=== PATIENT | female | born 1945 | race Caucasian/White ===

== ENCOUNTER → 2017-07-11 | Outpatient (CLI) | payer MEDICARE, BC ==
[~2017-07-11] MED LIST: ACTO35TA PO; AMBI6.25 PO; CEVI1CAP PO; FLUO20CA12 PO; FLUR50TA PO; IBAN150T3 PO; MULT1TAB PO; PANT40TA3 PO; TURM1CAP6 PO; VITA2000 PO; ZOLP10TA3 PO; [UNRECOGNIZED DRUG - OTHER]
[2017-07-11 11:11] LABS: BASOPHIL % 0.6 % (0.0-2.0); EOSINOPHIL % 0.8 % (0.0-4.0); HEMATOCRIT 36.6 % (35.0-46.0); HEMOGLOBIN 12.7 GM/DL (11.6-15.3); LYMPH % 22.8 % (9.0-44.0); MEAN CELL VOLUME 90.2 FL (80.0-100.0); MEAN CORPUSCULAR HEMOGLOBIN 31.2 PG (27.0-34.0); MEAN CORPUSCULAR HGB CONC 34.6 % (32.0-36.0); MONO % 6.9 % (0.0-8.0); MONOCYTE # 0.3 TH/MM3 (0-0.9); NEUT % 68.9 % (16.0-70.0); PLATELET COUNT 289 TH/MM3 (150-450); RED BLOOD COUNT 4.05 MIL/MM3 (4.00-5.30); RED CELL DISTRIBUTION WIDTH 12.9 % (11.6-17.2); WHITE BLOOD COUNT 4.4 TH/MM3 (4.0-11.0)
[2017-07-11 11:38] LABS: BICARBONATE 26.2 MEQ/L (21.0-32.0); CALCIUM 8.6 MG/DL (8.5-10.1); CREATININE 0.91 MG/DL (0.50-1.00)
--- NOTE | 2017-07-11 12:05 | RADRPT ---
EXAM DATE/TIME: 07/11/2017 11:23 [facility] COMPARISON: No previous studies available for comparison. INDICATIONS : Evaluate for pneumonia, pneumothorax or communicable disease. Pre op right knee replacement. MEDICAL HISTORY : None. SURGICAL HISTORY : None. ENCOUNTER: Initial ACUITY: 1 day PAIN SCORE: 0/10 LOCATION: Bilateral chest FINDINGS: PA and lateral views of the chest demonstrate the lungs to be symmetrically aerated without evidence of mass, infiltrate or effusion. The cardiomediastinal contours are unremarkable. Small hiatus clarita ia. Osseous structures are intact. CONCLUSION: The lungs are clear. Shahid Wesley MD on July 11, 2017 at 12:03 Board Certified Radiologist. This report was verified electronically.
[2017-07-11 13:16] LABS: BILIRUBIN, URINE NEG (NEG); BLOOD, URINE NEG (NEG); GLUCOSE,URINE NEG (NEG); KETONE, URINE NEG (NEG); NITRITE,URINE NEG (NEG); SQUAMOUS EPITHELIAL CELL URINE <1 /hpf (0-5); URINE COLOR LIGHT-YELLOW (YELLW/STRAW); URINE LEUKOCYTE ESTERASE NEG (NEG)
--- NOTE | 2017-07-11 14:45 | EKG ---
Date Performed: 07/11/2017 Time Performed: 09:47:34 PTAGE: 72 years EKG: SINUS TACHYCARDIA POSSIBLE LEFT ATRIAL ENLARGEMENT ABNORMAL RHYTHM ECG PREVIOUS TRACING : 04/23/2007 09.41 Since the prior tracing, there has been no significant lindsey DOCTOR: Danni Jon Interpretating Date/Time 07/11/2017 14:39:38
--- NOTE | 2017-07-11 16:35 | EKG ---
Date Performed: 07/11/2017 Time Performed: 11:06:10 PTAGE: 72 years EKG: Sinus rhythm NORMAL ECG NO PREVIOUS TRACING DOCTOR: Parth Bowen Interpretating Date/Time 07/11/2017 16:32:23
== END ==
LOC: CPRE 09:59
PROVIDERS: ATTEND Orthopaedic Surgery
DX: Z01.810 Encounter for preprocedural cardiovascular examination (principal); Z01.811 Encounter for preprocedural respiratory examination; Z01.812 Encounter for preprocedural laboratory examination; M17.11 Unilateral primary osteoarthritis, right knee; R94.31 Abnormal electrocardiogram [ECG] [EKG]
CPT/HCPCS: 36415; 71046; 80048; 81001; 85025; 85610; 93005

== ENCOUNTER 2017-07-23 05:06 | Inpatient (IN) | payer MEDICARE, BC ==
--- NOTE | 2017-07-17 11:52 | MH ---
cc: Juan Bergeron MD DATE OF ADMISSION: 07/23/2017 ADMITTING DIAGNOSIS: Osteoarthritis of the right knee, varus deformity right knee, patellofemoral disorder right knee, pain right knee and gait disturbance. HISTORY: The patient is a 72-year-old white female who has had a rather lengthy history of bilateral knee pain extending back for more than 10 years. She was diagnosed as having osteoarthritis in the past, for which she conformed on conservative management with treatment including cortisone injections, Synvisc, antiinflammatory medication and therapy intervention. With the passage of time, she became progressively more symptomatic, initially being pronounced on the left side, for which she subsequently underwent left total knee arthroplasty completed in May of this past year. The patient experienced an uneventful recovery at that time and was able to resume a reasonable level of activity, although experiencing lingering symptoms about her right knee. She returned to the office in the more recent past, indicating that with the passive of time, she was becoming progressively more symptomatic with pain that was beginning to interfere with her daily routine. She was trying to conform to exercise activities as she had previously been instructed following her therapy intervention but was having considerable incapacitation with regards to all ambulatory activities. She continued to take ibuprofen on a routine basis but was aware of a clicking and grinding sensation of her right knee with an associated sensation of instability. She was utilizing both the cane and the walker as ambulatory aids in a part-time fashion. Her more current x-ray studies revealed severe degenerative changes with near [id number] apposition about the medial compartment and secondary involvement of the patellofemoral articulation. A varus deformity of at least 10 degrees magnitude was associated. Findings and treatment options were reviewed with the patient at that time. The pros and cons of continuing with conservative management versus operative intervention that would involve total knee arthroplasty were outlined. Emphasis was made regarding the fact that the decision to proceed with surgery would be left entirely to the patient's discretion. The patient felt that she had progressed to that point in time where she was ready to proceed with such treatment, especially in light of the favorable response that she had noted from previous intervention of her left knee. In compliance with her wishes, she was scheduled for admission at this time in order that right total knee arthroplasty be accomplished. PAST MEDICAL HISTORY: Hospitalization and surgeries, in addition to her left total knee arthroplasty, include abdominal hysterectomy, stapedectomy of her left ear, right carpal tunnel release and colonoscopy. Her medical illnesses include Sjogren's syndrome, acid reflux, anxiety, and insomnia. CURRENT MEDICATIONS: Include cevimeline 30 mg twice daily, pantoprazole 40 mg daily, fluoxetine 20 mg daily, zolpidem 10 mg daily, flurbiprofen 50 mg daily, ibandronate 150 mg on a monthly basis, turmeric 50 mg daily, Centrum Silver 1 daily and vitamin D3 2000 International Units daily. THE PATIENT DENIES ANY KNOWN DRUG ALLERGIES. REVIEW OF SYSTEMS: She wears glasses. Denies headache, seizure or syncope. No sinus congestion or epistaxis. Diminished auditory acuity. No tinnitus. No bleeding gums or dysphagia. No cough, shortness of breath, upper respiratory infection, pneumonia or tuberculosis. No angina or heart disease. Her appetite is good. Bowel movements are regular. No hepatitis, gallbladder disease, ulcers or hemorrhoids. There is a history of urinary tract infection. No kidney stones. No history of fractures. She has been treated for anxiety but otherwise no active psychiatric illness are described. Remaining review of systems is unremarkable and noncontributory. FAMILY HISTORY: The patient has been a for almost 2 years, her having at 82 years of age secondary to heart disease. She has 2 sons, one at 20 years of age secondary to drug use. Family history is positive for diabetes, dementia, heart disease, glaucoma, liver cancer and sepsis. SOCIAL HISTORY: The patient completed a BA college degree. She has been retired for at least 3 years, having worked for the [employer]. Denies active use of tobacco for greater than 30 years, had been an intermittent user for at least 10 years prior to that time. Ethanol consumption in the form of an occasional glass of wine. PHYSICAL EXAMINATION: HEIGHT: 4 feet 10 inches. WEIGHT: 130 pounds. An alert, oriented and responsive 72-year-old white female who sits quietly upon the examination table with no apparent distress. HEAD, EARS, EYES, NOSE AND THROAT: Pupils are equally round and reactive to light. Extraocular movements full. Sclerae clear. External nares clear. External auditory canals clear. Dental intact. Mucous membranes pink and moist. Pharynx clear. NECK: Supple, active range of motion with no significant pain, carotid pulse palpable bilaterally. Trachea midline. Thyroid without enlargement. LUNGS: Clear to auscultation and percussion. No CVA tenderness. No discomfort throughout the dorsolumbar spine. HEART: Regular rhythm, no murmur or gallop. ABDOMEN: Soft, nontender. Bowel sounds present. PELVIC: Per primary care physician. EXTREMITIES: Right knee, there is a mild fullness about the right knee consistent with a thickened synovium, slight medial joint line tenderness. Apprehension and compression sign negative. A 5-90 degree range of motion with discomfort at the extreme of flexion and crepitation elicited. No collateral ligamentous instability. Pavel test and/or sign negative. Pivot shift and Kenny sign positive for medial compartment pain. Straight leg raising unremarkable at 80 degrees, satisfactory mobility of the right hip with no associated pain. Antalgic gait. NEUROLOGIC: Cranial nerves 2-12 grossly intact. IMPRESSION: Osteoarthritis of the right knee, varus deformity right knee, patellofemoral disorder right knee, pain right knee, gait disturbance. PLAN: Right total knee arthroplasty. The nature of the plan, surgical procedure, the potential complications and risks associated, the expectations of surgery and the consent form were thoroughly reviewed with the patient prior to admission to the hospital. Dara has indicated her full understanding regarding all of the above and giving consent to proceed with treatment as outlined. Medical evaluation and clearance for surgery will be completed by her primary care physician, Dr. Kavon Wei. MD ULISSES De/HOANG , 04:21 PM , 05:04 PM
[~2017-07-23] VITALS: Ht 147.3 cm; Wt 58.6 kg
[~2017-07-23 05:06] MED LIST changes: -ACTO35TA PO; -AMBI6.25 PO; -[UNRECOGNIZED DRUG - OTHER]
[2017-07-23] MEDS ORDERED: METOPROLOL TARTRATE 25 MG TAB PO PRN (05:30)
[2017-07-23] MEDS ORDERED: POVIDONE IODINE 5% (ANTISEPSIS KIT) 4 APPLICATIONS EACH NARE PRN (05:30)
[2017-07-23] MEDS ORDERED: CHLORHEXIDINE GLUCONATE 2 % 1 PACK (2 CLOTHS) TOPICAL PRN (05:30)
[2017-07-23] MEDS ORDERED: TRANEXAMIC ACID 1 GM PRIOR TO PROCEDURE IV SCH ×2 (05:30)
[2017-07-23] MEDS ORDERED: LACTATED RINGER'S 1000 ML IV PRN (05:30)
[2017-07-23] MEDS ORDERED: POVIDONE IODINE 7.5% SCRUB 118 ML BOTTLE TOPICAL SCH (05:30)
[2017-07-23] MEDS ORDERED: ceFAZolin 2 GM PREMIX 50 ML IV SCH (05:30)
[2017-07-23] MEDS ORDERED: EXPAREL PERI-ARTICULAR INJECTION (TOTAL VOL. 60 ML) P-ARTICULR SCH ×2 (05:30)
[2017-07-23] MEDS ORDERED: SODIUM CHLORID 0.9% 500 ML IV PRN (05:30)
[2017-07-23] MEDS ORDERED: TRANEXAMIC ACID 1 GM POST-OP IV SCH ×2 (05:30)
[2017-07-23] MEDS ORDERED: FAT EMULSION 20% INJ 0 ML ONE (05:58)
[2017-07-23] MEDS ORDERED: BUPIVACAINE LIPOSOME PF 1.3% 20 ML VIAL ONE (06:14)
[2017-07-23] MEDS ORDERED: MIDAZOLAM HCL 5 MG/5 ML VIAL ONE (06:14)
[2017-07-23] MEDS ORDERED: ceFAZolin INJ 1,000 MG VIAL ONE ×2 (06:16→13:33)
[2017-07-23] MEDS ORDERED: PROPOFOL 500 MG/50 ML INJ 50 ML ONE (06:39)
[2017-07-23] MEDS ORDERED: ACETAMINOPHEN 1000 MG/100 ML 100 ML IV ONE (07:36)
[2017-07-23] MEDS ORDERED: KETAMINE HCL 10 MG/5 ML SYRINGE IV PUSH ONE (07:36)
[2017-07-23] MEDS ORDERED: DO NOT ADM ANY ANTICOAGULANT DRUGS PRN (09:30)
[2017-07-23] MEDS ORDERED: *morphine SULFATE 10 MG/ML PERIprocedure ONLY ONE ×2 (09:30→09:50)
--- NOTE | 2017-07-23 10:03 | MP ---
cc: Juan Bergeron MD DATE OF OPERATION: 07/23/2017 PREOPERATIVE DIAGNOSIS: Osteoarthritis of the right knee, varus deformity right knee, patellofemoral disorder right knee, pain right knee and gait disturbance. POSTOPERATIVE DIAGNOSIS: Osteoarthritis of the right knee, varus deformity right knee, patellofemoral disorder right knee, pain right knee and gait disturbance. PROCEDURE: Right total knee arthroplasty. SURGEON: MD Elyssa ANESTHESIA: General endotracheal. INDICATIONS: A 72-year-old white female with a lengthy history of bilateral knee pain extending back for more than 10 years at which time the patient was diagnosed as having osteoarthritis and had conformed to conservative management in the past which included cortisone injection, Synvisc, anti-inflammatory medication and therapy intervention. With the passage of time she became progressively more symptomatic with pain, initially being more pronounced on the left side for which she subsequently underwent a left total knee arthroplasty in May of 2016. The patient was noted to have tolerated her procedure well and her postoperative course was uneventful thereafter. She was able to resume a reasonable level of activity, although experiencing lingering symptoms involving her right knee. She returned to the office in the more recent past indicating that, with the passage of time, she was becoming progressively more symptomatic with pain that was beginning to interfere with her daily routine and all weightbearing activities. She had been trying to conform to continued exercise activities as previously instructed following her therapy intervention but was having considerable incapacitation with regards to all ambulatory activities. She was continuing to take ibuprofen on a routine basis, being aware of a clicking and grinding sensation of her right knee with an associated sensation of instability. She had been alternating between a cane and a walker as ambulatory aids. Her current x-ray studies revealed severe degenerative changes with near [id number] apposition about the medial compartment and secondary involvement of the patellofemoral articulation. A varus deformity of at least 10 degrees magnitude was noted. The findings and treatment options were reviewed with the patient at that time. The pros and cons of continuing with further conservative management versus operative intervention that would involve a total knee arthroplasty were outlined. Emphasis was made regarding the fact that the decision to proceed with surgery would be left entirely to the patient's discretion. The patient felt that she had progressed to that point in time and, noting the favorable response she had experienced from previous intervention of her left knee, she was ready to proceed with similar treatment involving her right knee at this time. In compliance with her wishes, she was scheduled for admission in order that the above be accomplished. FORMAT: Following the induction of satisfactory general anesthesia by endotracheal intubation as completed per the Department of Anesthesia, a tourniquet was established around the proximal portion of the right lower extremity. The extremity proper was isolated with a U-drape, thereafter being prepped with Betadine solution and draped into a sterile field in the routine manner. Prior to initiation of the actual procedure, the standard time-out protocol was completed. All parameters were appropriately addresses and confirmed by operating room personnel. The extremity was elevated for approximately 1 minute and the tourniquet thus inflated to 250 mmHg pressure. A sharp skin incision was initiated midline over the anterior aspect of the knee, being developed through underlying subcutaneous tissue with hemostasis maintained by electrocautery. By deepening dissection the anterior capsule was exposed, the medial capsulotomy completed and the patella subluxed in a lateral orientation. Examination of the joint space revealed severe degenerative changes throughout the medial compartment extending into the patellofemoral articulation. There was complete erosion of articular cartilage and underlying subchondral bone exposed involving both femoral condyle and tibial plateau. Lesser degenerative involvement of the lateral compartment was noted. The articular surface of the patella was resected with power saw. The three-holed guide was utilized for establishing post holes. The anterior cruciate ligament as well as medial and lateral meniscus structures were sharply excised. A centering hole was placed in the distal aspect of the femur allowing positioning of the intramedullary guide. The distal femoral cutting jig was attached and the distal femur was resected. AP measurement noted 60 mm sizing to be appropriate. The matching cutting block was positioned. Anterior, posterior and chamfer cuts were completed. The tibial plateau was thereafter subluxed in an anterior orientation allowing positioning of the extramedullary guide. The tibial plateau was resected and measured with 67 mm sizing determined to be appropriate. A trial reduction followed utilizing a 60-mm anatomic femoral component, a 67-mm tibial base with both 10 and 12 mm bearing inserts trialed. The 12-mm thickness was determined to be the more favorable fit. The knee was readily brought to full extension. There was no laxity due to varus/valgus stress at both 0 and 90 degrees flexed posture. Orientation was confirmed as appropriate with measurement of the pelvic guide through the mechanical axis of the knee. A trial reduction followed utilizing a 28-mm standard, three post patellar button. Once again good tracking was noted with no tendency towards subluxation. All trial components being removed, the remaining portion of the proximal tibia was prepared for insertion of the permanent component. The joint space was thoroughly lavaged with pulsating antibiotic solution, hemostasis maintained by electrocautery. An autogenous bone plug was inserted into the distal guide hole and thereafter a preparation of Palacos bone cement was utilized in inserting the knee components in a sequential fashion which included a 67-mm fixed cruciate tibial plate to which a 12-mm Vanguard tibial bearing insert was secured with locking cueva. The 60-mm Vanguard femoral component was firmly seated onto the distal femur, excess cement being removed. The knee was brought to full extension and thereafter the 28-mm, three-post standard patellar button was attached and maintained in place with patellar clamp while cement hardening was completed. Final range of motion assessment noted good tracking and stability throughout the knee. Irrigation was repeated with hemostasis maintained. Autovac drain tubes were inserted through superior stab wounds. The capsule was repaired with 0 Vicryl suture. The remaining portion of the wound was closed in layers in the routine manner, skin margins being reapproximated with a running subcuticular 3-0 Vicryl suture over which Steri-Strips were applied. Xeroform gauze and a bulky, dry, sterile dressing were placed. The tourniquet was deflated after 38 minutes of tourniquet time, the extremity being supported in the canvas knee splint. Anesthesia was discontinued and the patient thus transferred to a hospital bed and returned to the recovery room in satisfactory condition, having tolerated her operative procedure well. Estimated blood loss was approximately 50-75 cc. 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 MD ULISSES De/TEETEE , 09:17 AM , 10:01 AM
[2017-07-23] MEDS ORDERED: HYDROmorphone HCL PF 2 MG/ML VIAL ONE (11:20)
[2017-07-23] MEDS ORDERED: PHENYLEPH/NS 1000 MCG/10 ML SYR IV ONE (12:00)
[2017-07-23] MEDS ORDERED: DEXAMETHASONE SOD PHOS 4 MG/ML VIAL IV ONE (12:00)
[2017-07-23] MEDS ORDERED: LIDOCAINE HCL 1% PF 5 ML SYRINGE OTHER ONE (12:00)
[2017-07-23] MEDS ORDERED: ONDANSETRON HCL 4 MG/2 ML VIAL IV PUSH ONE (12:00)
[2017-07-23] MEDS ORDERED: ePHEDrine/NS 25 MG/5 ML SYRINGE IV ONE (12:00)
[2017-07-23] MEDS ORDERED: ROCURONIUM INJ 50 MG/5 ML SYRINGE IV PUSH ONE (12:00)
[2017-07-23] MEDS ORDERED: LACTATED RINGER'S 1000 ML INJ 1,000 ML IV ONE (12:00)
[2017-07-23] MEDS ORDERED: ONDANSETRON HCL 4 MG/2 ML VIAL IVP PRN (13:15)
[2017-07-23] MEDS ORDERED: DOCUSATE SODIUM 100 MG CAP PO PRN (13:15)
[2017-07-23] MEDS ORDERED: diphenhydrAMINE HCL 25 MG CAP PO PRN (13:15)
[2017-07-23] MEDS ORDERED: TRANEXAMIC ACID INJ 1,000 MG in SODIUM CHLORIDE 0.9% INJ 100 ML IV SCH (13:15)
[2017-07-23] MEDS ORDERED: ACETAMINOPHEN 325 MG TAB PO PRN (13:15)
[2017-07-23] MEDS ORDERED: Post-op Orders (for Pharmacy) XX ONE (13:15)
[2017-07-23] MEDS ORDERED: NALOXONE HCL 0.4 MG/ML AMP IV PUSH PRN (13:15)
[2017-07-23] MEDS ORDERED: SODIUM CHLORIDE 0.9% INJ 100 ML ONE (13:33)
--- NOTE | 2017-07-23 13:42 | RADRPT ---
EXAM DATE/TIME: 07/23/2017 13:18 [facility] COMPARISON: CHEST PA & LAT, July 11, 2017, 11:23. INDICATIONS : Post-op right total knee. MEDICAL HISTORY : None. SURGICAL HISTORY : None. ENCOUNTER: Initial ACUITY: 1 day PAIN SCORE: 2/10 LOCATION: Right knee FINDINGS: The patient is post left knee arthroplasty. The orthopedic hardware is in excellent position. There i s a surgical drain in place. CONCLUSION: 1. Orthopedic hardware in excellent position. John Tiwari MD on July 23, 2017 at 13:40 Board Certified Radiologist. This report was verified electronically.
[2017-07-23] MEDS ORDERED: MORPHINE SULFATE 30 MG/30 ML PCA IV SCH (14:00)
[2017-07-23] MEDS: PCA - TOTAL MG MORPHINE DELIVERED PER SHIFT SCH ×2 (14:00→22:00)
[2017-07-23] MEDS: DEXT 5%-NACL 0.45% 1000 ML INJ 1,000 ML IV SCH ×2 (14:00→22:34)
[2017-07-23 14:40] VITALS: BP 134/81; PULSE 98; RESP 18; TEMP 96.2; O2SAT 93
--- NOTE | 2017-07-23 15:04 | PD.CONS ---
HPI Service [facility] Hospitalists Consult Requested By Dr. Bergeron Reason for Consult Medical management Primary Care Physician Abe Wei MD Diagnoses: (1) Depression (2) GERD (gastroesophageal reflux disease) (3) Hyperlipidemia (4) Sjogren's syndrome History of Present Illness The patient is a 72-year-old female seen following right total knee arthroplasty. Hospitalist consultation was requested for medical management. Patient reports that her chronic medical conditions include Sjogren's syndrome and hyperlipidemia. She states that she is not on medication for her cholesterol, "but should be". She states that she did not tolerate the medication she was given previously. She states that her pain is well controlled at this time. She is on a MAINTENANCE SPECIALIST pump. Denies chest pain or dyspnea. Review of Systems Constitutional: DENIES: Fever, Chills, Night Sweats Eyes: DENIES: Blurred vision, Vision loss Ears, nose, mouth, throat: DENIES: Hearing loss Respiratory: DENIES: Cough, Wheezing, Sputum production, Shortness of breath Cardiovascular: DENIES: Chest pain, Palpitations, Dyspnea on Exertion, Lower Extremity Edema Gastrointestinal: DENIES: Abdominal pain, Constipation, Diarrhea, Nausea, Vomiting Genitourinary: DENIES: Urinary frequency, Urinary incontinence, Urgency, Hematuria, Dysuria, Nocturia Musculoskeletal: COMPLAINS OF: Joint pain, DENIES: Muscle aches Integumentary: DENIES: Pruritus, Rash Hematologic/lymphatic: DENIES: Bruising Neurologic: DENIES: Headache Past Family Social History Allergies: Coded Allergies: penicillin G (Unverified Allergy, Mild, UNKNOWN, 12/31/16) [id number] Reductase Inhibitor (Verified Allergy, Unknown, MYALGIA, MUSCLE ACHES AND PAINS, 07/11/17) Past Medical History Sjogren's syndrome Hyperlipidemia Depression GERD Osteoarthritis Past Surgical History Left total knee arthroplasty Right carpal tunnel release Stapedectomy, left ear Hysterectomy Reported Medications Cevimeline 30 mg twice daily Pantoprazole 40 mg daily Fluoxetine 20 mg daily Zolpidem 10 mg daily Flurbiprofen 50 mg daily Ibandronate 150 mg monthly Turmeric 50 mg daily Centrum Silver daily Vitamin D3 2000 international units daily Family History Sister has diabetes. Social History Quit smoking 35 years ago. Drinks 1 glass of wine daily. Denies illicit drug use. Physical Exam Vital Signs Vital Signs Date Time Temp Pulse Resp B/P (MAP) Pulse Ox O2 Delivery O2 Flow Rate FiO2 07/23/17 10:00 88 15 129/74 (92) 96 Nasal Cannula 3 07/23/17 09:45 84 17 120/72 (88) 95 Nasal Cannula 3 07/23/17 09:30 84 18 110/70 (83) 95 Nasal Cannula 3 07/23/17 09:13 97.0 89 13 92/50 (64) 97 Nasal Cannula 3 07/23/17 06:15 Room Air 2 07/23/17 05:45 98.2 95 22 175/94 (121) 98 Physical Exam GENERAL: Well-nourished, well-developed female in no acute distress. HEENT: Normocephalic, atraumatic. Pupils equal, round and reactive. Extraocular movements intact. No scleral icterus. No injection or drainage. Oropharynx is clear. Mucous membranes are moist. CARDIOVASCULAR: Regular rate and rhythm without murmurs, gallops, or rubs. RESPIRATORY: Clear to auscultation. No wheezes, rales, or rhonchi. Breathing is non-labored. GASTROINTESTINAL: Abdomen soft, non-tender, nondistended. Positive bowel sounds. EXTREMITIES: No lower extremity edema. No calf tenderness. SCDs. PSYCH: Alert and oriented x 3. Imaging Last Impressions Knee X-Ray 07/23/17 1305 Signed Impressions: Service Date/Time: Sunday, July 23, 2017 13:18 - CONCLUSION: 1. Orthopedic hardware in excellent position. John Tiwari MD Assessment and Plan Assessment and Plan 1. Osteoarthritis: Status post right total knee arthroplasty. Management per orthopedic surgery. Continue bowel regimen, pain control. 2. Hyperlipidemia: Patient states that she did not tolerate medication. Follow -up as outpatient with PCP. 3. Sjogren's syndrome: Continue cevimeline. 4. Depression/anxiety: Continue fluoxetine. 5. GERD: Continue pantoprazole. 6. DVT prophylaxis: Xarelto. Raphael Chambers MD Jul 23, 2017 15:04
[2017-07-23 20:00] VITALS: BP 155/80; PULSE 96; RESP 17; TEMP 99.7; O2SAT 93
[2017-07-24] VITALS: BP 119/71; PULSE 93; RESP 15; TEMP 97.5; O2SAT 92
[2017-07-24] MEDS: ZOLPIDEM TARTRATE 5 MG TAB PO PRN ×2 (03:12→20:47)
[2017-07-24] MEDS: ACETAMINOPHEN/HYDROcodone 325 MG/5 MG TAB PO PRN ×4 (03:13→18:25)
[2017-07-24 04:00] VITALS: BP 106/60; PULSE 83; RESP 15; TEMP 98.2; O2SAT 94
[2017-07-24] MEDS: PCA - TOTAL MG MORPHINE DELIVERED PER SHIFT SCH ×3 (05:35→22:00)
[2017-07-24] MEDS: DEXT 5%-NACL 0.45% 1000 ML INJ 1,000 ML IV SCH ×3 (05:43→22:00)
[2017-07-24] MEDS ORDERED: HYDR-3516 PO (06:15)
[2017-07-24] MEDS ORDERED: ASPI-183 PO (06:15)
--- NOTE | 2017-07-24 06:17 | HHI.FF ---
Face to Face Verification Diagnosis: (1) DJD (degenerative joint disease) of knee Physical Therapy Gait training Knee: Total knee, Protocol: Right, Full weight bearing Right LE Weight Bearing: WB as tolerated Right LE Range of Motion: Active ROM Nursing Dressing Changes: Daily dressing change I have seen patient Dara Portillo on 07/24/17. My clinical findings support the need for the requested home health care services because: Limited ability to care for self High risk of falls I certify that my clinical findings support that this patient is homebound because: Post-op weakness Unsteady gait/balance Unsafe to leave home unassisted Juan Bergeron MD Jul 24, 2017 06:17
[2017-07-24] MEDS ORDERED: WALKER WHEELS/F1 MIS (06:18)
[2017-07-24 06:56] LABS: HEMATOCRIT 28.4 % (35.0-46.0); HEMOGLOBIN 9.9 GM/DL (11.6-15.3)
[2017-07-24] MEDS: MULTIVITAMINS/MINERALS THERAPEUTIC TAB PO SCH (07:57)
[2017-07-24] MEDS: FLUoxetine HCL 20 MG CAP PO SCH (07:57)
[2017-07-24] MEDS: PANTOPRAZOLE SOD 40 MG DELAYED RELEASE TAB PO SCH (07:57)
[2017-07-24] MEDS: RIVAROXABAN 10 MG TAB PO SCH (07:57)
[2017-07-24 08:00] VITALS: BP 116/89; PULSE 85; RESP 18; TEMP 97.9; O2SAT 96
[2017-07-24 12:00] VITALS: BP 92/59; PULSE 78; RESP 18; TEMP 99.3; O2SAT 93
--- NOTE | 2017-07-24 15:01 | HHI.PR ---
Subjective Remarks The patient reports that her pain is well controlled. She just had some food get stuck while she was swallowing, but it cleared and she feels "much better". She is eating a sandwich now without difficulty. No chest pain or dyspnea. Objective Vitals Vital Signs Date Time Temp Pulse Resp B/P (MAP) Pulse Ox O2 Delivery O2 Flow Rate FiO2 07/24/17 12:00 99.3 78 18 92/59 (70) 93 07/24/17 08:00 97.9 85 18 116/89 (98) 96 07/24/17 05:35 18 07/24/17 04:00 98.2 83 15 106/60 (75) 94 07/24/17 00:00 97.5 93 15 119/71 (87) 92 07/23/17 22:00 18 07/23/17 20:00 99.7 96 17 155/80 (105) 93 07/23/17 15:27 14 I/O 07/23/17 07/23/17 07/23/17 07/24/17 07/24/17 07/24/17 07:00 15:00 23:00 07:00 15:00 23:00 Intake Total 1825 ml 500 ml 1823 ml Output Total 100 ml 50 ml 50 ml Balance 1725 ml 450 ml 1773 ml Intake Oral 400 ml IV Total 325 ml 100 ml 1823 ml Other 1500 ml Output Drainage Total 50 ml 50 ml 50 ml Estimated Blood Loss 50 ml # Voids 1 3 Result Diagram: 07/24/17 0615 Imaging Last Impressions Knee X-Ray 07/23/17 1305 Signed Impressions: Service Date/Time: Sunday, July 23, 2017 13:18 - CONCLUSION: 1. Orthopedic hardware in excellent position. John Tiwari MD Objective Remarks General: No acute distress. Heart: Regular rate and rhythm. No murmur. Lungs: Clear to auscultation bilaterally. No wheezes, rales, or rhonchi. Breathing is nonlabored. Abdomen: Soft, nontender, nondistended. Extremities: No lower extremity edema. Right knee bandaged. Psych: Alert and oriented. Procedures 07/23/17 right total knee arthroplasty Urinary Catheter: No Vascular Central Line Catheter: No A/P Problem List: (1) Depression ICD Code: F32.9 - Major depressive disorder, single episode, unspecified (2) GERD (gastroesophageal reflux disease) ICD Code: K21.9 - Gastro-esophageal reflux disease without esophagitis (3) Hyperlipidemia ICD Code: E78.5 - Hyperlipidemia, unspecified (4) Sjogren's syndrome ICD Code: M35.00 - Sicca syndrome, unspecified Assessment and Plan 1. Osteoarthritis: Status post right total knee arthroplasty. Management per orthopedic surgery. Continue bowel regimen, pain control. Continue physical therapy. 2. Hyperlipidemia: Patient states that she did not tolerate medication. Follow -up as outpatient with PCP. 3. Sjogren's syndrome: Continue cevimeline. 4. Depression/anxiety: Continue fluoxetine. 5. GERD: Continue pantoprazole. 6. DVT prophylaxis: Xarelto. 7. Postoperative anemia: H&H slightly decreased. Monitor labs. Discharge Planning Patient will likely need SNF/rehab. Case management to assist with discharge planning. Raphael Chambers MD Jul 24, 2017 15:01
[2017-07-24 16:00] VITALS: BP 130/70; PULSE 94; RESP 18; TEMP 97.6; O2SAT 94
[2017-07-24 20:00] VITALS: BP 146/70; PULSE 90; RESP 16; TEMP 101.3; O2SAT 95
[2017-07-25] VITALS: BP 114/58; PULSE 83; RESP 15; TEMP 98.5; O2SAT 94
[2017-07-25] MEDS: ACETAMINOPHEN/HYDROcodone 325 MG/5 MG TAB PO PRN ×6 (03:55→23:12)
[2017-07-25 04:00] VITALS: BP 103/60; PULSE 75; RESP 15; TEMP 99.5; O2SAT 94
[2017-07-25] MEDS: PCA - TOTAL MG MORPHINE DELIVERED PER SHIFT SCH ×2 (05:02→13:34)
[2017-07-25] MEDS: DEXT 5%-NACL 0.45% 1000 ML INJ 1,000 ML IV SCH ×3 (05:02→20:38)
[2017-07-25 05:09] LABS: AUTOMATED NEUTROPHIL # 3.4 TH/MM3 (1.8-7.7); BASOPHIL % 0.4 % (0.0-2.0); EOSINOPHIL % 0.5 % (0.0-4.0); HEMATOCRIT 27.6 % (35.0-46.0); HEMOGLOBIN 9.5 GM/DL (11.6-15.3); LYMPH % 23.5 % (9.0-44.0); LYMPHOCYTE # 1.3 TH/MM3 (1.0-4.8); MEAN CELL VOLUME 90.3 FL (80.0-100.0); MEAN CORPUSCULAR HGB CONC 34.3 % (32.0-36.0); MEAN PLATELET VOLUME 7.2 FL (7.0-11.0); MONO % 12.1 % (0.0-8.0); MONOCYTE # 0.7 TH/MM3 (0-0.9); NEUT % 63.5 % (16.0-70.0); PLATELET COUNT 213 TH/MM3 (150-450); RED BLOOD COUNT 3.05 MIL/MM3 (4.00-5.30); RED CELL DISTRIBUTION WIDTH 12.8 % (11.6-17.2); WHITE BLOOD COUNT 5.4 TH/MM3 (4.0-11.0)
[2017-07-25 05:26] LABS: BICARBONATE 25.9 MEQ/L (21.0-32.0); CALCIUM 8.3 MG/DL (8.5-10.1); CREATININE 0.85 MG/DL (0.50-1.00)
--- NOTE | 2017-07-25 07:04 | MD ---
cc: Juan Bergeron MD, James E MD DATE OF DISCHARGE: 07/26/2017 ADMITTING DIAGNOSIS: Osteoarthritis of the right knee. Varus deformity right knee. Patellofemoral disorder right knee. Pain right knee and gait disturbance. DISCHARGE DIAGNOSIS: Osteoarthritis of the right knee. Varus deformity right knee. Patellofemoral disorder right knee. Pain right knee and gait disturbance. HISTORY: A 72-year-old white female with a lengthy history of bilateral knee pain extending back for more than 10 years. The patient was diagnosed as having osteoarthritis in the past for which she conformed to conservative management which included intermittent cortisone injections of Synvisc, anti-inflammatory medication and therapy intervention. With the passage of time, she became progressively more symptomatic with pain initially being more pronounced on the left side for which she subsequently underwent a left total knee arthroplasty completed in 05/2016. The patient experienced an uneventful recovery at that time and was able to resume a reasonable level of activity, although experiencing lingering symptoms of her right knee. She returned to the office in the more recent past indicating that with the passage of time she was becoming progressively more symptomatic with pain that was beginning to interfere with her daily routine. She was trying to conform to the exercise activity she had previously been instructed following her therapy intervention, but was having considerable incapacitation with regards to all ambulatory activities. She was continuing to take ibuprofen on a routine basis being aware of a clicking and grinding sensation about her right knee associated with the sensation of instability. She was utilizing both a cane and a walker as ambulatory aids in a part-time manner. Her current x-ray studies revealed severe degenerative changes with near [id number] apposition about the medial compartment and secondary involvement of the patellofemoral articulation and a varus deformity of at least 10 degrees magnitude. Findings and treatment options were reviewed with the patient at that time. The pros and cons of continuing with conservative management versus operative intervention that would involve a total knee arthroplasty were outlined. Emphasis was made regarding the fact that the decision to proceed with surgery would be left entirely to the patient's discretion. The patient felt that she had progressed to that point in time where she was ready to proceed with such treatment especially in light of the favorable response that she had noted from previous intervention of her left knee. In compliance with her wishes, she was scheduled for admission in order that right total knee arthroplasty be accomplished. Physical examination at the time of admission revealed a mild fullness about the right knee consistent with a thickened synovium. There was slight medial joint line tenderness. Apprehension and compression sign negative. A 5-90 degree range of motion with discomfort at the extreme of flexion and crepitation elicited. No collateral ligamentous instability. Pavel test and drawer sign negative. Pivot shift and Kenny sign positive for medial compartment pain. Straight leg raising unremarkable at 80 degrees. Satisfactory mobility of the right hip with no associated pain. Antalgic gait. HOSPITAL COURSE: Prior to admission to the hospital, the patient had undergone medical evaluation and clearance for surgery as completed by her primary care physician, Dr. Kavon Wei. She was taken to the operating room on 07/23/2017 and on that date underwent a right total knee arthroplasty completed in an uncomplicated manner. The patient was noted to have tolerated her operative procedure well. Her postoperative course was stable thereafter. Hemoglobin/hematocrit assessment postoperatively was 9.5 and 27.6 respectively. The patient was progressively mobilized under the guidance of physical therapy being permitted weight-bearing to tolerance about her right lower extremity. Followup examination of her surgical wound noted to be intact healing favorably. No evidence of infection. Medical followup per the hospitalist service. DVT prophylaxis initiated. guest services coordinator consulted to assist with discharge planning. The patient agreed to temporary rehab placement given the fact that she resided alone at home and did not have full-time help available. Superannuation Clerk facilitated plans in this regard and pending medical clearance, she was scheduled for transfer on the third postoperative day at which time she was noted to be making favorable progress with regards to her rehab program. She was scheduled to be seen in office followup in approximately 4 weeks. Her condition at the time of discharge is stable. Prognosis is favorable. DISCHARGE MEDICATIONS: 1. Hydrocodone 5/325 #60. 2. Aspirin 325 mg 1 tab twice daily for 3 weeks #40. Juan Bergeron MD NBS/DL , 06:30 AM , 07:03 AM
[2017-07-25 08:00] VITALS: BP 94/55; PULSE 88; RESP 16; TEMP 98; O2SAT 99
[2017-07-25] MEDS: PANTOPRAZOLE SOD 40 MG DELAYED RELEASE TAB PO SCH (08:36)
[2017-07-25] MEDS: RIVAROXABAN 10 MG TAB PO SCH (08:36)
[2017-07-25] MEDS: FLUoxetine HCL 20 MG CAP PO SCH (08:36)
[2017-07-25] MEDS: MULTIVITAMINS/MINERALS THERAPEUTIC TAB PO SCH (08:37)
[2017-07-25 12:00] VITALS: BP 108/56; PULSE 76; RESP 16; TEMP 98.3; O2SAT 98
[2017-07-25] MEDS ORDERED: MISCELLANEOUS PHARMACY INFORMATION XX ONE (14:00)
--- NOTE | 2017-07-25 14:08 | HHI.PR ---
Subjective Remarks Follow up fever, anemia. Patient denies chest pain, dyspnea. She did have mild nausea earlier today. Objective Vitals Vital Signs Date Time Temp Pulse Resp B/P (MAP) Pulse Ox O2 Delivery O2 Flow Rate FiO2 07/25/17 08:00 98.0 88 16 94/55 (68) 99 07/25/17 04:00 99.5 75 15 103/60 (74) 94 07/25/17 00:00 98.5 83 15 114/58 (76) 94 07/24/17 22:00 18 07/24/17 20:00 101.3 90 16 146/70 (95) 95 07/24/17 16:00 97.6 94 18 130/70 (90) 94 I/O 07/24/17 07/24/17 07/24/17 07/25/17 07/25/17 07/25/17 07:00 15:00 23:00 07:00 15:00 23:00 Intake Total 1823 ml 600 ml Output Total 50 ml 50 ml 30 ml Balance 1773 ml 550 ml -30 ml Intake Oral 600 ml IV Total 1823 ml Output Drainage Total 50 ml 50 ml 30 ml # Voids 5 2 # Bowel Movements 0 Result Diagram: 07/25/17 0430 07/25/17 0430 Imaging Last Impressions Knee X-Ray 07/23/17 1305 Signed Impressions: Service Date/Time: Sunday, July 23, 2017 13:18 - CONCLUSION: 1. Orthopedic hardware in excellent position. John Tiwari MD Objective Remarks General: No acute distress. Heart: Regular rate and rhythm. No murmur. Lungs: Clear to auscultation bilaterally. No wheezes, rales, or rhonchi. Breathing is nonlabored. Abdomen: Soft, nontender, nondistended. Extremities: No lower extremity edema. Right knee bandaged. SCDs. Psych: Alert and oriented. Procedures 07/23/17 right total knee arthroplasty Urinary Catheter: No Vascular Central Line Catheter: No A/P Problem List: (1) Depression ICD Code: F32.9 - Major depressive disorder, single episode, unspecified (2) GERD (gastroesophageal reflux disease) ICD Code: K21.9 - Gastro-esophageal reflux disease without esophagitis (3) Hyperlipidemia ICD Code: E78.5 - Hyperlipidemia, unspecified (4) Sjogren's syndrome ICD Code: M35.00 - Sicca syndrome, unspecified Assessment and Plan 1. Osteoarthritis: Status post right total knee arthroplasty. Management per orthopedic surgery. Continue bowel regimen, pain control. Continue physical therapy. 2. Hyperlipidemia: Patient states that she did not tolerate medication. Follow -up as outpatient with PCP. 3. Sjogren's syndrome: Continue cevimeline. 4. Depression/anxiety: Continue fluoxetine. 5. GERD: Continue pantoprazole. 6. DVT prophylaxis: Xarelto. 7. Postoperative anemia: H&H slightly decreased postoperatively. Monitor labs. 8. Fever: Encourage incentive spirometry. No leukocytosis and patient has been afebrile since midnight. No respiratory or urinary complaints at this time. Discharge Planning Plan is for discharge to SNF/rehab, possibly tomorrow, per orthopedic surgery. Raphael Chambers MD Jul 25, 2017 14:08
[2017-07-25 16:00] VITALS: BP 95/51; PULSE 76; RESP 16; TEMP 99.7; O2SAT 94
[2017-07-25] MEDS ORDERED: EVOXAC PO SCH (18:00)
[2017-07-25 20:00] VITALS: BP 111/63; PULSE 88; RESP 18; TEMP 98.8; O2SAT 95
[2017-07-25] MEDS: ZOLPIDEM TARTRATE 5 MG TAB PO PRN (23:12)
[2017-07-26] VITALS: BP 114/67; PULSE 78; RESP 16; TEMP 99.1; O2SAT 94
[2017-07-26] MEDS: ZOLPIDEM TARTRATE 5 MG TAB PO PRN (00:15)
[2017-07-26] MEDS: DEXT 5%-NACL 0.45% 1000 ML INJ 1,000 ML IV SCH ×3 (06:00→20:31)
[2017-07-26] MEDS: FLUoxetine HCL 20 MG CAP PO SCH (07:17)
[2017-07-26] MEDS: RIVAROXABAN 10 MG TAB PO SCH (07:17)
[2017-07-26] MEDS: ACETAMINOPHEN/HYDROcodone 325 MG/5 MG TAB PO PRN ×4 (07:17→21:07)
[2017-07-26] MEDS: PANTOPRAZOLE SOD 40 MG DELAYED RELEASE TAB PO SCH (07:17)
[2017-07-26] MEDS: MULTIVITAMINS/MINERALS THERAPEUTIC TAB PO SCH (07:18)
[2017-07-26 08:00] VITALS: BP 133/65; PULSE 81; RESP 18; TEMP 100.3; O2SAT 91
[2017-07-26 12:00] VITALS: BP 99/51; PULSE 74; RESP 18; TEMP 98.9; O2SAT 95
--- NOTE | 2017-07-26 12:28 | HHI.PR ---
Subjective Remarks Follow up fever, anemia. Patient has not had a BM since surgery. Received Colace this morning. Denies cough, dyspnea, chest pain, nausea, vomiting, dysuria. Objective Vitals Vital Signs Date Time Temp Pulse Resp B/P (MAP) Pulse Ox O2 Delivery O2 Flow Rate FiO2 07/26/17 08:00 100.3 81 18 133/65 (87) 91 07/26/17 00:00 99.1 78 16 114/67 (83) 94 07/25/17 20:00 98.8 88 18 111/63 (79) 95 07/25/17 16:00 99.7 76 16 95/51 (66) 94 I/O 07/25/17 07/25/17 07/25/17 07/26/17 07/26/17 07/26/17 07:00 15:00 23:00 07:00 15:00 23:00 Intake Total 240 ml Output Total 30 ml Balance -30 ml 240 ml Intake Oral 240 ml Output Drainage Total 30 ml # Voids 2 1 # Bowel Movements 0 Result Diagram: 07/25/17 0430 07/25/17 0430 Imaging Last Impressions Knee X-Ray 07/23/17 1305 Signed Impressions: Service Date/Time: Sunday, July 23, 2017 13:18 - CONCLUSION: 1. Orthopedic hardware in excellent position. John Tiwari MD Objective Remarks General: No acute distress. Sitting up in a chair. Heart: Regular rate and rhythm. No murmur. Lungs: Clear to auscultation bilaterally. No wheezes, rales, or rhonchi. Breathing is nonlabored. Abdomen: Soft, nontender, nondistended. Extremities: No lower extremity edema. Right knee bandaged. SCDs. Psych: Alert and oriented. Procedures 07/23/17 right total knee arthroplasty Urinary Catheter: No Vascular Central Line Catheter: No A/P Problem List: (1) Depression ICD Code: F32.9 - Major depressive disorder, single episode, unspecified (2) GERD (gastroesophageal reflux disease) ICD Code: K21.9 - Gastro-esophageal reflux disease without esophagitis (3) Hyperlipidemia ICD Code: E78.5 - Hyperlipidemia, unspecified (4) Sjogren's syndrome ICD Code: M35.00 - Sicca syndrome, unspecified Assessment and Plan 1. Osteoarthritis: Status post right total knee arthroplasty. Management per orthopedic surgery. Continue bowel regimen, pain control. Continue physical therapy. 2. Hyperlipidemia: Patient states that she did not tolerate medication. Follow -up as outpatient with PCP. 3. Sjogren's syndrome: Continue cevimeline. 4. Depression/anxiety: Continue fluoxetine. 5. GERD: Continue pantoprazole. 6. DVT prophylaxis: Xarelto. 7. Postoperative anemia: H&H slightly decreased postoperatively. Stable. 8. Fever: Encourage incentive spirometry. No respiratory or urinary complaints at this time. Tmax 100.3 this morning. 9. Constipation: As needed medications added. Received Colace this morning. Discharge Planning Plan is for discharge to SNF/rehab today per orthopedic surgery. Raphael Chambers MD Jul 26, 2017 12:28
[2017-07-26] MEDS ORDERED: SENNOSIDES 8.6 MG TAB PO PRN (12:30)
[2017-07-26] MEDS ORDERED: BISACODYL 10 MG SUPP RECTAL PRN (12:30)
[2017-07-26] MEDS ORDERED: MAGNESIUM HYDROXIDE SUSP 30 ML CUP PO PRN (12:30)
[2017-07-26] MEDS ORDERED: LACTULOSE SYRUP 20 GM/30 ML CUP PO PRN (12:30)
[2017-07-26 16:00] VITALS: BP 128/60; PULSE 82; RESP 18; TEMP 100.3; O2SAT 95
[2017-07-26 19:20] VITALS: BP 115/58; PULSE 71; RESP 17; TEMP 98.9; O2SAT 94
[2017-07-26] MEDS: DOCUSATE SODIUM 50 MG/SENNA 8.6 MG TAB PO SCH (20:31)
[2017-07-27 00:25] VITALS: BP 134/65; PULSE 77; RESP 17; TEMP 98.2; O2SAT 96
[2017-07-27] MEDS: ZOLPIDEM TARTRATE 5 MG TAB PO PRN ×2 (01:15→02:00)
[2017-07-27] MEDS: DEXT 5%-NACL 0.45% 1000 ML INJ 1,000 ML IV SCH ×2 (04:29→10:34)
[2017-07-27] MEDS: DOCUSATE SODIUM 50 MG/SENNA 8.6 MG TAB PO SCH (06:58)
[2017-07-27 08:00] VITALS: BP 120/51; PULSE 76; RESP 18; TEMP 99.2; O2SAT 93
[2017-07-27] MEDS: MULTIVITAMINS/MINERALS THERAPEUTIC TAB PO SCH (10:34)
[2017-07-27] MEDS: ACETAMINOPHEN/HYDROcodone 325 MG/5 MG TAB PO PRN (10:34)
[2017-07-27] MEDS: PANTOPRAZOLE SOD 40 MG DELAYED RELEASE TAB PO SCH (10:34)
[2017-07-27] MEDS: RIVAROXABAN 10 MG TAB PO SCH (10:34)
[2017-07-27] MEDS: FLUoxetine HCL 20 MG CAP PO SCH (10:34)
[2017-07-27 12:00] VITALS: BP 116/73; PULSE 95; RESP 18; TEMP 99.1; O2SAT 93
--- NOTE | 2017-07-27 12:55 | HHI.PR ---
Subjective Remarks Follow up constipation. Patient did not go to SNF yesterday due to constipation. She has now had multiple bowel movements. She has no complaints at this time. Denies abdominal pain, chest pain, dyspnea. Objective Vitals Vital Signs Date Time Temp Pulse Resp B/P (MAP) Pulse Ox O2 Delivery O2 Flow Rate FiO2 07/27/17 08:00 99.2 76 18 120/51 (74) 93 07/27/17 00:25 98.2 77 17 134/65 (88) 96 07/26/17 19:20 98.9 71 17 115/58 (77) 94 07/26/17 16:00 100.3 82 18 128/60 (82) 95 I/O 07/26/17 07/26/17 07/26/17 07/27/17 07/27/17 07/27/17 07:00 15:00 23:00 07:00 15:00 23:00 Intake Total 240 ml 600 ml 720 ml Balance 240 ml 600 ml 720 ml Intake Oral 240 ml 600 ml 720 ml # Voids 1 3 4 # Bowel Movements 0 1 3 Result Diagram: 07/25/17 0430 07/25/17 0430 Imaging Last Impressions Knee X-Ray 07/23/17 1305 Signed Impressions: Service Date/Time: Sunday, July 23, 2017 13:18 - CONCLUSION: 1. Orthopedic hardware in excellent position. John Tiwari MD Objective Remarks General: No acute distress. Ambulating with a walker. Heart: Regular rate and rhythm. No murmur. Lungs: Clear to auscultation bilaterally. No wheezes, rales, or rhonchi. Breathing is nonlabored. Abdomen: Soft, nontender, nondistended. Extremities: No lower extremity edema. Right knee bandaged. Psych: Alert and oriented. Procedures 07/23/17 right total knee arthroplasty Urinary Catheter: No Vascular Central Line Catheter: No A/P Problem List: (1) Depression ICD Code: F32.9 - Major depressive disorder, single episode, unspecified (2) GERD (gastroesophageal reflux disease) ICD Code: K21.9 - Gastro-esophageal reflux disease without esophagitis (3) Hyperlipidemia ICD Code: E78.5 - Hyperlipidemia, unspecified (4) Sjogren's syndrome ICD Code: M35.00 - Sicca syndrome, unspecified Assessment and Plan 1. Osteoarthritis: Status post right total knee arthroplasty. Management per orthopedic surgery. Continue bowel regimen, pain control. Continue physical therapy. 2. Hyperlipidemia: Patient states that she did not tolerate medication. Follow -up as outpatient with PCP. 3. Sjogren's syndrome: Continue cevimeline. 4. Depression/anxiety: Continue fluoxetine. 5. GERD: Continue pantoprazole. 6. DVT prophylaxis: Xarelto. 7. Postoperative anemia: H&H slightly decreased postoperatively. Stable. 8. Fever: Encourage incentive spirometry. No respiratory or urinary complaints at this time. 9. Constipation: Resolved. Continue bowel regimen. Discharge Planning Discharge to SNF/rehab today per orthopedic surgery. Raphael Chambers MD Jul 27, 2017 12:55
== END 2017-07-27 13:51 | DRG 470 ==
LOC: HSDI 05:06 → N06B 14:10
PROVIDERS: ADMIT Orthopaedic Surgery; ATTEND Orthopaedic Surgery
PROC: 3E0T3BZ Introduction of Anesthetic Agent into Peripheral Nerves and Plexi, Percutaneous Approach (ICD-10-PCS; 2017-07-23)
PROC: 0SRC0J9 Replacement of Right Knee Joint with Synthetic Substitute, Cemented, Open Approach (ICD-10-PCS; principal; 2017-07-23 06:44)
DX: M17.11 Unilateral primary osteoarthritis, right knee (principal); M35.00 Sjogren syndrome, unspecified; D64.9 Anemia, unspecified; R50.9 Fever, unspecified; F32.9 Major depressive disorder, single episode, unspecified; M22.2X1 Patellofemoral disorders, right knee; M21.161 Varus deformity, not elsewhere classified, right knee; K21.9 Gastro-esophageal reflux disease without esophagitis; F41.9 Anxiety disorder, unspecified; G47.00 Insomnia, unspecified; E78.5 Hyperlipidemia, unspecified; Z96.652 Presence of left artificial knee joint; K59.00 Constipation, unspecified; Z90.710 Acquired absence of both cervix and uterus; Z87.891 Personal history of nicotine dependence
CPT/HCPCS: 73560; 80048; 85014; 85018; 85025; 86850; 86900; 86901; 88305; 94150; C1776; C9290; J0131; J0690; J1100; J1170; J2250; J2270; J2370; J2405; J3010; J7120; L1830